=== PATIENT | male | born 1970 | race Caucasian/White ===

== ENCOUNTER 2023-01-16 18:26 | Emergency (ER) | payer SELFPAY ==
[~2023-01-16] VITALS: Ht 154.9 cm; Wt 80.0 kg
[2023-01-16 18:32] VITALS: BP 137/97; PULSE 73; RESP 18; TEMP 98; O2SAT 100
== END 2023-01-16 19:49 | disposition home or self-care (01) ==
LOC: ER 18:26
DX: S61.411D Laceration without foreign body of right hand, subsequent encounter (principal); X58.XXXD Exposure to other specified factors, subsequent encounter
CPT/HCPCS: 99281